=== PATIENT | female | born 1965 | race Caucasian/White ===

== ENCOUNTER 2017-01-11 18:32 | Emergency (ER) | payer SELFPAY ==
--- NOTE | 2017-01-11 20:52 | ER Document Report ---
ED Medical Screen (RME) - General Chief Complaint: Breathing Difficulty Stated Complaint: HEADACHE/SHORTNESS OF BREATH Mode of Arrival: Ambulatory Information source: Patient TRAVEL OUTSIDE OF THE [place] IN LAST 30 DAYS: No - HPI Onset: Other - 3-4 DAYS Onset/Duration: Gradual Quality of pain: Sharp, Other - "FEELS LIKE MY BRAIN IS DYING" Associated Symptoms: Cough (productive) Exacerbated by: Coughing, Deep breathing Relieved by: Denies Similar symptoms previously: No Recently seen / treated by doctor: Yes - EYE DOCTOR 01/08, DR. TATE 12/31 - Related Data Smoking: Less than 1 pack/day Frequency of alcohol use: None Drug Abuse: None Allergies/Adverse Reactions: Sulfa (Sulfonamide Antibiotics) Allergy (Verified 10/18/15 07:36) Past Medical History - General Information source: Patient - Social History Cigarette use (# per day): Yes Chew tobacco use (# tins/day): No Frequency of alcohol use: None Drug Abuse: None Lives with: Family Family history: Reviewed & Not Pertinent - Past Medical History Cardiac Medical History: Reports: Hx Hypertension, Hx Pulmonary Embolism Denies: Hx Coronary Artery Disease, Hx Heart Attack Pulmonary Medical History: Reports: Other - P.E. Denies: Hx Asthma, Hx Bronchitis, Hx COPD, Hx Pneumonia EENT Medical History: Reports: None Neurological Medical History: Denies: Hx Cerebrovascular Accident, Hx Seizures Endocrine Medical History: Reports: None Renal/ Medical History: Reports: None. Denies: Hx Peritoneal Dialysis Malignancy Medical History: Reports: None GI Medical History: Reports: Hx Gastroesophageal Reflux Disease Musculoskeltal Medical History: Reports Hx Arthritis - general Psychiatric Medical History: Reports: Hx Anxiety, Hx Depression Traumatic Medical History: Reports: None Past Surgical History: Reports: Hx Hysterectomy, Hx Tubal Ligation - Immunizations Hx Diphtheria, Pertussis, Tetanus Vaccination: No Review of Systems - Review of Systems Constitutional: Weight loss - 20# / 2 WKS EENT: Blurred vision, Other - VIS. ACUITY DECLINED TO 20/100 IN PAST YEAR Cardiovascular: Chest pain Respiratory: Short of breath Gastrointestinal: See HPI, Poor appetite Genitourinary: No symptoms reported Female Genitourinary: No symptoms reported Musculoskeletal: No symptoms reported Skin: No symptoms reported Neurological/Psychological: See HPI Physical Exam - Vital signs Vitals: Temp Pulse BP Pulse Ox 97.8 F 146 H 141/105 H 98 04/03/17 19:39 01/11/17 19:39 01/11/17 19:39 01/11/17 19:39 Interpretation: Hypertensive, Tachycardic Course - Vital Signs Vital signs: Temp Pulse Resp BP Pulse Ox 97.8 F 146 H 141/105 H 98 01/11/17 19:39 01/11/17 19:39 01/11/17 19:39 01/11/17 19:39
[2017-01-11 21:24] LABS: ABSOLUTE BASOPHILS # (AUTO) 0.1 10^3/uL (0.0-0.2); ABSOLUTE EOSINOPHILS # (AUTO) 0.1 10^3/uL (0.0-0.6); ABSOLUTE LYMPHOCYTES (AUTO) 1.9 10^3/uL (0.5-4.7); ABSOLUTE MONOCYTES (AUTO) 0.9 10^3/uL (0.1-1.4); ABSOLUTE NEUT (AUTO) 11.1 10^3/uL (1.7-8.2); BASOPHILS % (AUTO) 0.5 % (0-2); EOSINOPHILS % (AUTO) 0.6 % (0-6); HEMATOCRIT 44.2 % (36.0-47.0); HEMOGLOBIN 14.8 g/dL (12.0-15.5); HGB HCT DIFFERENCE 0.2; LYMPHOCYTES % (AUTO) 13.7 % (13-45); MEAN CORPUSCULAR HEMOGLOBIN 28.8 pg (27.0-33.4); MEAN CORPUSCULAR HGB CONC 33.4 g/dL (32.0-36.0); MEAN CORPUSCULAR VOLUME 86 fl (80-97); MONOCYTES % (AUTO) 6.6 % (3-13); RED BLOOD COUNT 5.12 10^6/uL (3.72-5.28); RED CELL DISTRIBUTION WIDTH 13.7 % (11.5-14.0); SEGMENTED NEUTROPHILS % (AUTO) 78.6 % (42-78)
[2017-01-11 21:25] LABS: APPEARANCE,URINE CLEAR; BILIRUBIN,URINE NEGATIVE (NEGATIVE); GLUCOSE, URINE NEGATIVE (NEGATIVE); KETONES,URINE NEGATIVE (NEGATIVE); LEUKOCYTE ESTERASE,URINE TRACE (NEGATIVE); NITRITE,URINE NEGATIVE (NEGATIVE); PROTEIN,URINE NEGATIVE (NEGATIVE); URINE SPECIFIC GRAVITY 1.005; UROBILINOGEN,URINE NEGATIVE mg/dL (<2.0)
[2017-01-11 21:35] LABS: ALANINE AMINOTRANSFERASE 26 U/L (9-52); ALBUMIN 4.2 g/dL (3.5-5.0); ALKALINE PHOSPHATASE 122 U/L (38-126); ANION GAP 11 (5-19); ASPARTATE AMINO TRANSFERASE 18 U/L (14-36); BILIRUBIN,DIRECT 0.2 mg/dL (0.0-0.4); BILIRUBIN,TOTAL 0.5 mg/dL (0.2-1.3); BLOOD UREA NITROGEN 9 mg/dL (7-20); CALCIUM 9.9 mg/dL (8.4-10.2); CARBON DIOXIDE 27 mmol/L (22-30); CHLORIDE 104 mmol/L (98-107); CREATINE KINASE 31 U/L (30-135); CREATININE RESULT 0.59 mg/dL (0.52-1.25); GLUCOSE 92 mg/dL (75-110); POTASSIUM 4.4 mmol/L (3.6-5.0); SODIUM 141.8 mmol/L (137-145)
[2017-01-11 21:47] LABS: CREATINE KINASE MB 0.32 ng/mL (<4.55); TROPONIN I < 0.012 ng/mL
[2017-01-11 22:01] LABS: ERYTHROCYTE SEDIMENTATION RATE 18 mm/hr (0-20)
[2017-01-11] MEDS ORDERED: AMOXICILLIN TR/POT CLAVULANATE 500-125 MG TAB PO ONE (23:16)
[2017-01-11] MEDS ORDERED: HYDROCODONE/ACETAMINOPHEN 5-325 MG TABLET PO ONE (23:16)
[2017-01-11] MEDS ORDERED: ONDANSETRON ODT 4 MG TAB (6 TAB/DSPK) PO PRN (23:16)
[2017-01-11] MEDS ORDERED: ONDANSETRON 4 MG TAB.RAPDIS SL ONE (23:16)
[2017-01-11] MEDS ORDERED: HYDROCODONE/ACETAMINOPHEN 5-325 MG 6 TAB/DSPK PO PRN (23:16)
--- NOTE | 2017-01-11 23:20 | ER Document Report ---
ED Headache - General Chief Complaint: Breathing Difficulty Stated Complaint: HEADACHE/SHORTNESS OF BREATH Time seen by provider: 23:17 Mode of Arrival: Ambulatory Information source: Patient TRAVEL OUTSIDE OF THE [place] IN LAST 30 DAYS: No - HPI Patient complains to provider of: Headache Patient reports: Hx chronic headaches Onset was: Gradual Timing: Still present Quality of pain: Achy, Dull Severity: Mild Pain Level: 2 Associated symptoms: Confusion, Double/blurred vision Similar symptoms previously: Yes Recently seen / treated by doctor: Yes Notes: Patient is a 51-year-old female who presents to the emergency room complaining of headache with nausea that's been going on for the past 3 years, she reports that she feels like she is in a fog and confused at times as well, over the past few weeks she's developed a cough which is productive of whitish colored phlegm and nasal discharge, with a subjective fever and chills, she denies any nausea or vomiting, states she's been seen by multiple specialists and her primary care provider for these symptoms, and that patient reports that she was told that it is related to her psychiatric illness - Related Data Allergies/Adverse Reactions: Sulfa (Sulfonamide Antibiotics) Allergy (Verified 10/18/15 07:36) Past Medical History - General Information source: Patient - Social History Smoking Status: Current Every Day Smoker Cigarette use (# per day): Yes Chew tobacco use (# tins/day): No Frequency of alcohol use: None Drug Abuse: None Lives with: Family Family History: Reviewed & Not Pertinent Patient has suicidal ideation: Yes Patient has homicidal ideation: No - Past Medical History Cardiac Medical History: Reports: Hx Hypertension, Hx Pulmonary Embolism Denies: Hx Coronary Artery Disease, Hx Heart Attack Pulmonary Medical History: Reports: Other - P.E. Denies: Hx Asthma, Hx Bronchitis, Hx COPD, Hx Pneumonia EENT Medical History: Reports: None Neurological Medical History: Denies: Hx Cerebrovascular Accident, Hx Seizures Endocrine Medical History: Reports: None Renal/ Medical History: Reports: None. Denies: Hx Peritoneal Dialysis Malignancy Medical History: Reports: None GI Medical History: Reports: Hx Gastroesophageal Reflux Disease Musculoskeltal Medical History: Reports Hx Arthritis - general Psychiatric Medical History: Reports: Hx Anxiety, Hx Depression Traumatic Medical History: Reports: None Past Surgical History: Reports: Hx Hysterectomy, Hx Tubal Ligation - Immunizations Hx Diphtheria, Pertussis, Tetanus Vaccination: No Review of Systems - Review of Systems Constitutional: Chills, Fever EENT: See HPI Cardiovascular: No symptoms reported Respiratory: Cough Gastrointestinal: No symptoms reported Genitourinary: No symptoms reported Female Genitourinary: No symptoms reported Musculoskeletal: No symptoms reported Skin: No symptoms reported Hematologic/Lymphatic: No symptoms reported Neurological/Psychological: See HPI -: Yes All other systems reviewed and negative Physical Exam - Vital signs Vitals: Temp Pulse BP Pulse Ox 97.8 F 146 H 141/105 H 98 01/11/17 19:39 01/11/17 19:39 01/11/17 19:39 01/11/17 19:39 Interpretation: Normal - General General appearance: Appears well, Alert - HEENT Head: Normocephalic, Atraumatic Eyes: Normal Conjunctiva: Normal Extraocular movements intact: Yes Eyelashes: Normal Pupils: PERRL Ears: Normal External canal: Normal Tympanic membrane: Normal Sinus: Maxillary Nasal: Normal Mouth/Lips: Normal Mucous membranes: Normal Pharynx: Normal Neck: Normal - Respiratory Respiratory status: No respiratory distress Chest status: Nontender Breath sounds: Normal Chest palpation: Normal - Cardiovascular Rhythm: Regular, Tachycardia Heart sounds: Normal auscultation Murmur: No - Abdominal Inspection: Normal Distension: No distension Bowel sounds: Normal Tenderness: Nontender Organomegaly: No organomegaly - Back Back: Normal, Nontender - Extremities General upper extremity: Normal inspection, Nontender, Normal color, Normal ROM , Normal temperature General lower extremity: Normal inspection, Nontender, Normal color, Normal ROM , Normal temperature, Normal weight bearing. No: Stephane's sign - Neurological Neuro grossly intact: Yes Cognition: Normal Orientation: AAOx4 Cathleen Coma Scale Eye Opening: Spontaneous Cathleen Coma Scale Verbal: Oriented Cathleen Coma Scale Motor: Obeys Commands [place] Coma Scale Total: 15 Speech: Normal Motor strength normal: LUE, RUE, LLE, RLE Sensory: Normal - Psychological Associated symptoms: Anxious - Skin Skin Temperature: Warm Skin Moisture: Dry Skin Color: Normal Course - Re-evaluation Re-evalutation: 01/12/17 04:06 Lab and imaging findings were discussed with patient at bedside which are consistent with acute sinusitis, patient was started on antibiotics for this and provided with nausea medication as well as information for follow-up, patient was advised to return if symptoms worsen, patient acknowledges understanding and agreement with this plan - Vital Signs Vital signs: Temp Pulse Resp BP Pulse Ox 97.8 F 90 18 140/88 H 100 01/11/17 19:39 01/11/17 23:44 01/11/17 23:44 01/11/17 23:44 01/11/17 23:44 - Laboratory Result Diagrams: 01/11/17 21:05 01/11/17 21:05 Laboratory results interpreted by me: 01/11/17 01/11/17 21:05 21:05 WBC 14.0 H Seg Neutrophils % 78.6 H Absolute Neutrophils 11.1 H Ur Leukocyte Esterase TRACE H - Diagnostic Test Radiology reviewed: Image reviewed, Reports reviewed Discharge - Discharge Clinical Impression: Headache Qualifiers: Headache type: unspecified Headache chronicity pattern: chronic headache Intractability: not intractable Qualified Code(s): R51 - Headache Sinus infection Qualifiers: Sinusitis location: maxillary Chronicity: acute Recurrence: non-recurrent Qualified Code(s): J01.00 - Acute maxillary sinusitis, unspecified Condition: Stable Disposition: HOME, SELF-CARE Instructions: Headache ([facility]), Sinusitis ([facility]) Additional Instructions: Follow up with your primary care provider in one to 2 days. Return to the emergency room immediately if symptoms worsen or any additional concerns. Prescriptions: Amox Tr/Potassium Clavulanate [Augmentin 875-125 Tablet] 1 tab PO BID #20 tablet Ondansetron [Zofran Odt 4 mg Tablet] 1 - 2 tab PO Q4H #10 tab.francine
[2017-01-11 23:45] VITALS: BP 140/88
--- NOTE | 2017-01-12 13:11 | EKG REPORT ---
SEVERITY:- NORMAL ECG - SINUS RHYTHM : Confirmed by: Sarah Russo MD 12-Jan-2017 13:09:06
== END 2017-01-11 23:45 | disposition home or self-care (01) ==
LOC: ER 18:32
DX: J01.00 Acute maxillary sinusitis, unspecified (principal); R51 Headache; R41.0 Disorientation, unspecified; R05 Cough; J34.89 Other specified disorders of nose and nasal sinuses; R00.0 Tachycardia, unspecified; F17.210 Nicotine dependence, cigarettes, uncomplicated; I10 Essential (primary) hypertension; Z86.711 Personal history of pulmonary embolism; Z88.2 Allergy status to sulfonamides
CPT/HCPCS: 93005; 99285; 36415; 82553; 82550; 85025; 85652; 80053; 81001; 84484; 85379; 71010; 70450; 93010; S0119

== ENCOUNTER → 2017-02-10 | Outpatient (CLI) | payer MEDICAID ==
[2017-02-10 13:02] LABS: MAGNESIUM 1.9 mg/dL (1.6-2.3)
[2017-02-12 10:26] LABS: LEAD UR None Detected ug/L (0-49); MERCURY UR None Detected ug/L (0-19)
[2017-02-12 14:40] LABS: IMMUNOGLOBULIN A 261 mg/dL (87-352); IMMUNOGLOBULIN G 1005 mg/dL (700-1600)
[2017-02-13 13:30] LABS: IMMUNOGLOBULIN M 100 mg/dL (26-217)
== END ==
LOC: OD 11:41
PROVIDERS: ATTEND Specialist
DX: E53.8 Deficiency of other specified B group vitamins (principal)
CPT/HCPCS: 36415; 82175; 82607; 82784; 83655; 83735; 83825; 85652; 86038

== ENCOUNTER → 2017-02-23 | Outpatient (CLI) | payer MEDICAID ==
--- NOTE | 2017-02-25 14:07 | EEG PRO FEE REPORT ---
EEG INTERPRETATION PATIENT NAME: NANCY BRINK ROOM#: ORDER#: [id number] DATE OF STUDY: 02/23/2017 : 1965 REFERRING MD: MANN TALLEY M.D. DIAGNOSIS: Psychomotor agitation. REPORT The background activity consists of 8 to 9 Hz alpha posteriorly with some superimposed motion artifact. No clear focal slowing, amplitude asymmetry, or epileptiform discharges are seen. Some motion artifact is noted. IMPRESSION Normal EEG INTERPRETING PHYSICIAN: MANN TALLEY M.D. /: KIRILL TT: 1241 ID: [id number] /: [id number] TD: [id number] JOB: [id number] cc:MANN ATLLEY M.D. >
== END ==
LOC: NEURO 13:01
PROVIDERS: ATTEND Specialist
DX: F43.8 Other reactions to severe stress (principal)
CPT/HCPCS: 95819

== ENCOUNTER → 2017-03-03 | Outpatient (CLI) | payer MEDICAID ==
[2017-03-03 12:18] LABS: HEMATOCRIT 44.6 % (36.0-47.0); HGB HCT DIFFERENCE 0.4; MEAN CORPUSCULAR HEMOGLOBIN 30.4 pg (27.0-33.4); MEAN CORPUSCULAR HGB CONC 33.7 g/dL (32.0-36.0); MEAN CORPUSCULAR VOLUME 90 fl (80-97); RED BLOOD COUNT 4.94 10^6/uL (3.72-5.28); RED CELL DISTRIBUTION WIDTH 15.1 % (11.5-14.0); WHITE BLOOD COUNT 8.7 10^3/uL (4.0-10.5)
== END ==
LOC: OD 11:45
PROVIDERS: ATTEND Specialist
DX: R51 Headache (principal)
CPT/HCPCS: 36415; 84460; 85027

== ENCOUNTER 2018-05-04 14:34 | Emergency (ER) | payer SELFPAY ==
[2018-05-04 14:46] VITALS: BP 141/86
[2018-05-04] MEDS ORDERED: OXYCODONE-ACETAMINOPHEN 5-325 MG TABLET PO ONE (14:56)
--- NOTE | 2018-05-04 15:00 | ER Document Report ---
ED Extremity Problem, Upper - General Chief Complaint: Shoulder Injury Stated Complaint: LEFT SHOULDER PAIN Time Seen by Provider: 05/04/18 14:51 Notes: Patient is a 52-year-old female complaining of pain to her left shoulder. Patient reports that she fell in the bathtub 2 days ago and hyperextended her left shoulder. TRAVEL OUTSIDE OF THE [place] IN LAST 30 DAYS: No - HPI Patient complains to provider of: Shoulder Quality of pain: Sharp Severity of pain: Severe Associated symptoms: None Exacerbated by: Movement Relieved by: Nothing Similar symptoms previously: No - Related Data Allergies/Adverse Reactions: Sulfa (Sulfonamide Antibiotics) Allergy (Verified 05/04/18 14:34) Past Medical History - General Information source: Patient - Social History Smoking Status: Current Every Day Smoker Chew tobacco use (# tins/day): No Frequency of alcohol use: Social Drug Abuse: None Lives with: Family Family History: Reviewed & Not Pertinent Patient has suicidal ideation: No Patient has homicidal ideation: No - Past Medical History Cardiac Medical History: Reports: Hx Hypertension, Hx Pulmonary Embolism Denies: Hx Coronary Artery Disease, Hx Heart Attack Pulmonary Medical History: Denies: Hx Asthma, Hx Bronchitis, Hx COPD, Hx Pneumonia Neurological Medical History: Denies: Hx Cerebrovascular Accident, Hx Seizures Renal/ Medical History: Denies: Hx Peritoneal Dialysis GI Medical History: Reports: Hx Gastroesophageal Reflux Disease Musculoskeletal Medical History: Reports Hx Arthritis - general Psychiatric Medical History: Reports: Hx Anxiety, Hx Depression Past Surgical History: Reports: Hx Hysterectomy, Hx Tubal Ligation - Immunizations Hx Diphtheria, Pertussis, Tetanus Vaccination: No Review of Systems - Review of Systems Constitutional: No symptoms reported EENT: No symptoms reported Cardiovascular: No symptoms reported Respiratory: No symptoms reported Gastrointestinal: No symptoms reported Genitourinary: No symptoms reported Female Genitourinary: No symptoms reported Musculoskeletal: See HPI Skin: No symptoms reported Hematologic/Lymphatic: No symptoms reported Neurological/Psychological: No symptoms reported Physical Exam - Vital signs Vitals: Temp Pulse Resp BP Pulse Ox 97.9 F 98 18 141/86 H 95 05/04/18 14:45 05/04/18 14:45 05/04/18 14:45 05/04/18 14:45 05/04/18 14:45 Interpretation: Normal - General General appearance: Appears well, Alert - HEENT Head: Normocephalic, Atraumatic Eyes: Normal Pupils: PERRL - Respiratory Respiratory status: No respiratory distress Chest status: Nontender Breath sounds: Normal Chest palpation: Normal - Cardiovascular Rhythm: Regular Heart sounds: Normal auscultation Murmur: No - Abdominal Inspection: Normal Distension: No distension Bowel sounds: Normal Tenderness: Nontender Organomegaly: No organomegaly - Back Back: Normal, Nontender - Extremities General lower extremity: Normal inspection, Nontender, Normal color, Normal ROM , Normal temperature, Normal weight bearing. No: Stephane's sign Shoulder: Tender - Positive anterior and posterior shoulder tenderness. Positive painful arc. No deformity clavicle nontender - Neurological Neuro grossly intact: Yes Cognition: Normal Orientation: AAOx4 [place] Coma Scale Eye Opening: Spontaneous Cathleen Coma Scale Verbal: Oriented Cathleen Coma Scale Motor: Obeys Commands [place] Coma Scale Total: 15 Speech: Normal Motor strength normal: LUE, RUE, LLE, RLE Sensory: Normal - Psychological Associated symptoms: Normal affect, Normal mood - Skin Skin Temperature: Warm Skin Moisture: Dry Skin Color: Normal Course - Re-evaluation Re-evalutation: 05/04/18 15:37 X-rays negative for acute injury. These results reviewed with the patient. There is no neurovascular compromise. Low suspicion for fracture, compartment syndrome, DVT. Home care, orthopedic follow-up and ED return precautions were discussed with the patient. Patient is agreeable with plan is stable for discharge - Vital Signs Vital signs: Temp Pulse Resp BP Pulse Ox 97.9 F 98 18 141/86 H 95 05/04/18 14:45 05/04/18 14:45 05/04/18 14:45 05/04/18 14:45 05/04/18 14:45 Procedures - Immobilization left shoulder Pre-Proc Neuro Vasc Exam: Normal Immobilizer type: Sling Performed by: PCT Post-Proc Neuro Vasc Exam: Normal Alignment checked and good: Yes Discharge - Discharge Clinical Impression: Injury of left shoulder Qualifiers: Encounter type: initial encounter Qualified Code(s): S49.92XA - Unspecified injury of left shoulder and upper arm, initial encounter Condition: Stable Disposition: HOME, SELF-CARE Instructions: Oral Narcotic Medication ([facility]), Sling as Treatment ([facility]), Ice Packs ([facility]), Warm Packs ([facility]) Additional Instructions: Your x-rays negative for acute fracture but I cannot rule out an internal derangement of your shoulder Wear sling for comfort but not more than 48 consecutive hours Alternate ice and heat to the sore area I recommend orthopedic follow-up for further evaluation and treatment if the pain persists more than 10 days Short course of pain medication and muscle relaxant will be prescribed. [facility] [address] [place] [address] Prescriptions: Methocarbamol [Robaxin 500 Mg Tablet] 1,000 mg PO Q6 #30 tablet Oxycodone HCl/Acetaminophen [Percocet 5-325 mg Tablet] 1 tab PO Q6H PRN #12 tablet PRN Reason: Referrals: MANN TALLEY MD [Primary Care Provider] - Follow up as needed
--- NOTE | 2018-05-04 15:25 | RADIOLOGY REPORT (SQ) ---
EXAM DESCRIPTION: SHOULDER LEFT 2 OR MORE VIEWS COMPLETED DATE/TIME: 05/04/2018 3:14 pm REASON FOR STUDY: left shoulder pain, fell in bathtub COMPARISON: None. NUMBER OF VIEWS: Three views. TECHNIQUE: Internal rotation, external rotation, and Y view images acquired of the left shoulder. LIMITATIONS: None. FINDINGS: MINERALIZATION: Normal. BONES: No acute fracture or dislocation. No worrisome bone lesions. JOINTS: No dislocation. VISUALIZED LUNGS AND RIBS: No pneumothorax. No rib fracture. SOFT TISSUES: No radiopaque foreign body. OTHER: No other significant finding. IMPRESSION: NEGATIVE STUDY OF THE LEFT SHOULDER. NO RADIOGRAPHIC EVIDENCE OF ACUTE INJURY. TECHNICAL DOCUMENTATION: JOB ID: [id number] [employer] [place]- All Rights Reserved Reading location - IP/workstation name: [email or web address]
== END 2018-05-04 15:48 | disposition home or self-care (01) ==
LOC: ER 14:34
DX: S49.92XA Unspecified injury of left shoulder and upper arm, initial encounter (principal); M25.512 Pain in left shoulder; W18.2XXA Fall in (into) shower or empty bathtub, initial encounter; F17.200 Nicotine dependence, unspecified, uncomplicated; I10 Essential (primary) hypertension; Z88.2 Allergy status to sulfonamides
CPT/HCPCS: 99283